=== PATIENT | female | born 1970 | race Caucasian/White ===

== ENCOUNTER 2017-07-02 19:07 | Emergency (ER) | payer SELFPAY ==
[~2017-07-02] VITALS: Ht 162.6 cm; Wt 75.3 kg
[2017-07-02 19:29] VITALS: Ht 162.6 cm; Wt 75.3 kg
[2017-07-02 21:59] LABS: BASOPHIL % 0.5 % (0-2); PLATELET COUNT 266 x10^3mcL (130-400); RED CELL DISTRIBUTION WIDTH 13.6 % (11.5-14.5)
[2017-07-02 22:04] LABS: CALCIUM 8.7 mg/dL (8.5-10.1); CARBON DIOXIDE 28.9 mmol/L (21-32); CHLORIDE SERUM 104 mmol/L (98-107); CREATININE SERUM 0.9 mg/dL (0.6-1.0); GFR1 > 60 mL/min; GLUCOSE SERUM 125 mg/dL (74-106); SODIUM SERUM 139 mmol/L (136-145)
[2017-07-02 22:14] LABS: AMPHETAMINE QUAL UR NONE DETECTED (NEG <=1000)
[2017-07-02 22:16] LABS: ALBUMIN 3.7 g/dL (3.4-5.0); ALKALINE PHOSPHATASE 34 U/L (46-116); ALT/SGPT 17 U/L (14-59); AST/SGOT 12 U/L (15-37); BILIRUBIN TOTAL 0.3 mg/dL (0.20-1.00); T4(THYROXINE) 8.4 ug/dL (4.7-13.3); TOTAL PROTEIN, SERUM 7.3 g/dL (6.4-8.2)
[2017-07-02 23:34] VITALS: BP 122/54
== END 2017-07-02 23:34 | disposition home or self-care (01) ==
LOC: ED 19:07
PROVIDERS: Emergency Medicine
DX: F41.9 Anxiety disorder, unspecified (principal); R51 Headache; G47.00 Insomnia, unspecified; F17.200 Nicotine dependence, unspecified, uncomplicated; Z90.89 Acquired absence of other organs
CPT/HCPCS: 36415; 83880

== ENCOUNTER 2020-07-07 10:54 | Emergency (ER) | payer MEDICAID, SELFPAY ==
[~2020-07-07] VITALS: Ht 167.6 cm; Wt 68.0 kg
[2020-07-07 10:55] VITALS: Ht 167.6 cm; Wt 68.0 kg
[2020-07-07 13:06] VITALS: BP 145/82
== END 2020-07-07 13:06 | disposition home or self-care (01) ==
LOC: ED 10:54
DX: G43.909 Migraine, unspecified, not intractable, without status migrainosus (principal); R20.2 Paresthesia of skin; E11.9 Type 2 diabetes mellitus without complications; Z90.89 Acquired absence of other organs
CPT/HCPCS: J8597; Q0163

== ENCOUNTER 2020-08-05 12:02 | Emergency (ER) | payer MEDICAID ==
[~2020-08-05] VITALS: Ht 157.5 cm; Wt 72.6 kg
[2020-08-05 12:11] VITALS: Ht 157.5 cm; Wt 72.6 kg
[2020-08-05 15:25] VITALS: BP 116/74
== END 2020-08-05 15:25 | disposition home or self-care (01) ==
LOC: ED 12:02
DX: S80.01XA Contusion of right knee, initial encounter (principal); E11.9 Type 2 diabetes mellitus without complications; Z90.89 Acquired absence of other organs; W01.0XXA Fall on same level from slipping, tripping and stumbling without subsequent striking against object, initial encounter; Y93.89 Activity, other specified; Y92.89 Other specified places as the place of occurrence of the external cause; Y99.8 Other external cause status
CPT/HCPCS: J1885